=== PATIENT | male | born 1965 | race Caucasian/White ===

== ENCOUNTER 2024-01-25 12:42 | Emergency (ER) | payer OTHER ==
[~2024-01-25] VITALS: Ht 175.3 cm; Wt 82.0 kg
[2024-01-25 12:55] VITALS: O2SAT 97
[2024-01-25 13:41] LABS: BASOPHILS % 0.4 % (0.0-2.0); EOSINOPHILS % 0.8 % (0.0-5.0); HEMATOCRIT. 43.8 % (42.0-52.0); HEMOGLOBIN. 15.1 g/dL (14.0-18.0); LYMPHOCYTES % 18.5 % (20.0-50.0); MEAN CORPUSCULAR HEMOGLOBIN 31.2 pg (28.0-32.0); MEAN CORPUSCULAR HGB CONC 34.4 g/dL (31.0-37.0); MEAN CORPUSCULAR VOLUME 90.7 fL (80.0-94.0); MEAN PLATELET VOLUME 8.9 fl (7.4-10.4); MONOCYTES % 6.5 % (2.0-8.0); NEUTROPHILS % 73.8 % (40.0-76.0); PLATELET 235 x1000/uL (130-400); RED BLOOD CELL COUNT 4.83 mill/uL (4.7-6.1); RED CELL DISTRIBUTION WIDTH 12.5 % (11.6-14.6); WHITE BLOOD COUNT 11.9 x1000/uL (4.5-11.0)
[2024-01-25] MEDS: KETOROLAC 15MG/ML VIAL IV ONE (13:43)
[2024-01-25 13:50] LABS: CARBON DIOXIDE 29 mEq/L (21-32); CHLORIDE 100 mEq/L (98-107); POTASSIUM 3.6 mEq/L (3.5-5.1); SODIUM 139 mEq/L (136-145)
[2024-01-25 13:51] LABS: CALCIUM 9.5 mg/dL (8.7-10.4)
[2024-01-25 13:56] LABS: CREATININE 1.3 mg/dL (0.6-1.3); GLUCOSE 88 mg/dL (70-105); UREA NITROGEN BLOOD 16 mg/dL (9-23)
[2024-01-25 13:58] LABS: ALANINE AMINOTRANSFERASE 53 IU/L (10-49); ALBUMIN 4.7 g/dL (3.2-4.8); ASPARTATE AMINOTRANSFERASE 35 IU/L (<34); BILIRUBIN TOTAL 0.9 mg/dL (0.1-1.0); PROTEIN TOTAL 7.7 g/dL (6.0-8.3)
[2024-01-25 16:11] VITALS: BP 118/71; PULSE 60; RESP 16; TEMP 98
[2024-01-25] MEDS ORDERED: IOHEXOL-350 100 ML BOTTLE ONE (19:43)
== END 2024-01-25 16:10 | disposition home or self-care (01) ==
LOC: ER 12:42
DX: S89.81XA Other specified injuries of right lower leg, initial encounter (principal)
CPT/HCPCS: 80053; 85025; 36415; 73562; 72191; 73706; 29505; 96374; 99285; Q9967; J1885; Z7610 ×4; L1830